=== PATIENT | male | born 1985 | race Caucasian/White ===

== ENCOUNTER 2017-01-27 18:10 | Emergency (ER) | payer OTHER ==
[~2017-01-27] VITALS: Ht 182.9 cm; Wt 66.7 kg
[2017-01-27 18:10] VITALS: BP 119/81
== END 2017-01-27 18:49 | disposition home or self-care (01) ==
LOC: ER 18:17
DX: L73.9 Follicular disorder, unspecified (principal)
CPT/HCPCS: 99282; A4606; Z7610